=== PATIENT | female | born 1995 | race Caucasian/White ===

== ENCOUNTER 2023-01-31 13:15 | Emergency (ER) | payer OTHER ==
[~2023-01-31] VITALS: Ht 167.6 cm; Wt 59.0 kg
[2023-01-31 13:49] VITALS: BP 116/74; PULSE 84; RESP 18; TEMP 97.6; O2SAT 99
[2023-01-31] MEDS ORDERED: NAPR-54 PO (14:57)
[2023-01-31] MEDS ORDERED: CYCL-711 PO (14:57)
[2023-01-31 15:20] VITALS: BP 118/79; PULSE 84; RESP 18; TEMP 97.6; O2SAT 99
== END 2023-01-31 15:20 | disposition home or self-care (01) ==
LOC: MED 13:15
DX: M54.2 Cervicalgia (principal); R51.9 Headache, unspecified; Z79.899 Other long term (current) drug therapy; Z79.1 Long term (current) use of non-steroidal anti-inflammatories (NSAID); V89.2XXA Person injured in unspecified motor-vehicle accident, traffic, initial encounter; Y93.89 Activity, other specified; Y92.410 Unspecified street and highway as the place of occurrence of the external cause; Y99.8 Other external cause status
CPT/HCPCS: 99283